=== PATIENT | female | born 1950 | race Caucasian/White ===

== ENCOUNTER 2022-01-20 19:17 | Emergency (ER) | payer MEDICARE, MEDICAID, SELFPAY ==
[2022-01-20 19:33] VITALS: BP 100/66; PULSE 84; RESP 16; TEMP 37.4; O2SAT 97
--- NOTE | 2022-01-20 19:52 | ED.SKABFB ---
HPI - Skin/Abscess/Foreign Bdy General Chief complaint: Skin/Abscess/Foreign Body Stated complaint: Facial Swelling/Rash Time Seen by Provider: 01/20/22 19:52 Source: patient, family, RN notes reviewed and old records reviewed Mode of arrival: ambulatory Limitations: no limitations History of Present Illness HPI narrative: 89 year old female [facility] using [facility] with rash to face and around eyes with swelling present and itching, with area of rash to left knee and some spots noted on hands since Friday. Patient reports that her eyes were almost swelled shut this morning and her daughter told her she needed to be seen for the rash. Patient reports that she was working in her garden on Friday and she started with this rash on Friday morning and it has progressively gotten worse on her face around her eyes, Patient denies any new soaps, lotions, foods, medications or any new laundry products. She denies any difficulty with her breathing or any problems with swallowing. She states that she has not taken any OTC medications for her complaint. MD complaint: rash Onset (ago): day(s) Location: face, L hand, R hand and LLE (at knee) Quality: pruritic Related Data Home Medications Medication Instructions Recorded Confirmed armodafinil 250 mg PO DAILY 01/20/22 01/20/22 atorvastatin 10 mg PO DAILY 01/20/22 01/20/22 cetirizine 10 mg DAILY 01/20/22 01/20/22 escitalopram oxalate 15 mg PO DAILY 01/20/22 01/20/22 hydrocodone-acetaminophen 1 tablet PO BID 01/20/22 01/20/22 levothyroxine 88 mcg DAILY 01/20/22 01/20/22 morphine 15 mg PO BID 01/20/22 01/20/22 multivitamin 1 tablet PO DAILY 01/20/22 01/20/22 omeprazole 20 mg PO BID 01/20/22 01/20/22 Allergies Allergy/AdvReac Type Severity Reaction Status Date / Time No Known Allergies Allergy Verified 01/20/22 19:40 Review of Systems Review of Systems: CONSTITUTIONAL: Denies fever, chills, or sweats. EYES: Denies visual changes,redness around eyes with swelling noted and red rises scattered rash on face,, no discharge. ENT: Denies rhinorrhea, congestion, sore throat, or otalgia. CARDIOVASCULAR: Denies chest pain, palpitations, or edema. RESPIRATORY: Denies cough or dyspnea. GASTROINTESTINAL: Denies abdominal pain, nausea, vomiting, or diarrhea.reports no difficulty with swollowing GENITOURINARY: Denies dysuria or hematuria. SKIN:Positive for rash or itching.Facial rash red scattered with swelling and redness around eyes MUSCULOSKELETAL: Chronic back pain, joint pain, or myalgia. NEUROLOGIC: Denies headache, numbness, or weakness. PSYCHIATRIC:Positive for history of anxiety or depression. All systems reviewed & are unremarkable except as noted in HPI and below PMFSH Past Medical History Medical History (Updated 01/21/22 @ 15:30 by Jordyn Holland NP) Arthritis Elevated cholesterol Hypothyroid Pacemaker Spinal stenosis Ulcer Surgical History Surgical History (Updated 01/21/22 @ 15:18 by Jordyn Holland NP) History of gastric bypass History of hip replacement, total right History of knee replacement left Hx of cholecystectomy Social History Social History (Updated 01/21/22 @ 15:23 by Jordyn Holland NP) Smoking status: Never smoker Alcohol use details: none Substance use: current Substance use type: prescription drug Last use: daily pain medications for chronic pain Gender identity (if verbalized by the patient): Female Comments At time of signature, agree with nursing past medical, surgical, social and family history. There is no relevant family history pertinent to the presenting complaint Exam Narrative: GENERAL: Well-appearing, well-nourished, and in some acute distress. HEAD: Normocephalic, atraumatic. EYES: PERRLA and EOMI. surrounding redness with swelling around eyes and upper face, with no difficulty breathing or swallowing ENT: Nares clear, no rhinorrhea or epistaxis. Mucous membranes moist.TM's normal, throat pink with
[2022-01-20] MEDS: methylPREDNISolone ACETATE 80 MG/ML VIAL IM (20:02)
== END 2022-01-20 20:27 | disposition home or self-care (01) ==
PROVIDERS: Emergency Provider Registered Nurse; PCP Physician Assistant
DX: L23.7 Allergic contact dermatitis due to plants, except food (principal); M19.90 Unspecified osteoarthritis, unspecified site; E78.00 Pure hypercholesterolemia, unspecified; E03.9 Hypothyroidism, unspecified; Z95.0 Presence of cardiac pacemaker; M48.00 Spinal stenosis, site unspecified
CPT/HCPCS: 96372; 99203; G0463; J1040